=== PATIENT | male | born 1940 | race Asian ===

== ENCOUNTER 2019-06-17 05:14 | Emergency (ER) | payer MEDICARE ==
[~2019-06-17] VITALS: Ht 170.2 cm; Wt 93.2 kg
[2019-06-17] MEDS ORDERED: ALLO100T PO (05:32)
[2019-06-17] MEDS ORDERED: ALBU8HFA IH (05:32)
[2019-06-17] MEDS ORDERED: INSU100V SQ (05:32)
[2019-06-17] MEDS ORDERED: LOSA25TA41 PO (05:32)
[2019-06-17] MEDS ORDERED: SIMV-259 PO (05:32)
[2019-06-17] MEDS ORDERED: ASPI81 PO (05:32)
[2019-06-17] MEDS ORDERED: FINA5TAB41 PO (05:32)
[2019-06-17] MEDS ORDERED: FURO20 PO (05:32)
[2019-06-17] MEDS ORDERED: HYDR10TA31 PO (05:32)
[2019-06-17 05:33] LABS: GLUCOSE,POINT OF CARE 184 MG/DL (70-110)
[2019-06-17] MEDS ORDERED: POTA99TA15 PO (05:37)
[2019-06-17 05:39] LABS: BASOPHILS % (AUTO) 0.5 % (0.0-2.0); EOSINOPHILS % (AUTO) 3.4 % (1.0-6.0); HEMATOCRIT 39.3 % (41-53); LYMPHOCYTES # (AUTO) 2.3 K/uL (1.0-4.8); LYMPHOCYTES % (AUTO) 28.5 % (22.0-44.0); MEAN CORPUSCULAR HGB CONC 33.2 G/dL (31.0-37.0); MEAN CORPUSCULAR VOLUME 91 fL (80-100); MONOCYTES # (AUTO) 0.8 K/uL (0.1-1.0); MONOCYTES % (AUTO) 10.1 % (2.0-9.0); NEUTROPHILS # (AUTO) 4.6 K/uL (1.8-7.7); NEUTROPHILS % (AUTO) 57.5 % (40.0-70.0); PLATELET COUNT (AUTO) 153 K/uL (150-450); RED BLOOD CELL COUNT(AUTO) 4.34 MIL/uL (4.50-5.90); RED CELL DISTRIBUTION WIDTH 14.8 % (11.5-14.5)
[2019-06-17] MEDS ORDERED: KDUR10 PO (05:47)
[2019-06-17] MEDS ORDERED: FURO40 PO (05:47)
[2019-06-17] MEDS ORDERED: SIMV-260 PO (05:47)
[2019-06-17] MEDS ORDERED: HYDR25TA84 PO (05:47)
[2019-06-17] MEDS ORDERED: MONT10TA21 PO (05:47)
[2019-06-17] MEDS ORDERED: TAMS-13 PO (05:47)
[2019-06-17 06:14] LABS: CALCIUM, TOTAL 8.6 mg/dL (8.8-10.5); CREATININE 1.95 mg/dL (0.60-1.30); POTASSIUM 4.4 mmol/L (3.5-5.1)
[2019-06-17 06:18] LABS: PROTHROMBIN TIME 9.9 SEC (9.4-11.6)
[2019-06-17 06:20] LABS: ALBUMIN 3.8 g/dL (3.4-5.0); BILIRUBIN,TOTAL 0.6 mg/dL (0.1-1.0); MAGNESIUM 2.1 mg/dL (1.80-2.40); TOTAL PROTEIN, SERUM 7.6 g/dL (6.4-8.2)
[2019-06-17 07:48] LABS: APPEARANCE,URINE CLEAR (CLEAR); BILIRUBIN,URINE NEGATIVE (NEGATIVE); GLUCOSE, URINE (UA) NEGATIVE (NEGATIVE); KETONES,URINE NEGATIVE (NEGATIVE); LEUKOCYTE ESTERASE ,URINE NEGATIVE (NEGATIVE); NITRATE,URINE NEGATIVE (NEGATIVE); OCCULT BLOOD,URINE NEGATIVE (NEGATIVE); PH,URINE 6.5 (5.0-8.0); PROTEIN,URINE SEE CONFIRM (NEGATIVE); UROBILINOGEN,URINE 0.2 mg/dL (<=1.0)
[2019-06-17 07:57] LABS: SULFOSALICYLIC ACID,URINE Trace (Negative)
[2019-06-17 07:59] LABS: BACTERIA,URINE None Seen /HPF (None Seen); RBC,URINE None Seen /HPF (0-2); SQUAMOUS EPITHELIAL CELL,UR Few /LPF (None Seen); WBC,URINE None Seen /HPF (0-5)
[2019-06-17] MEDS ORDERED: GLYCERIN 2 GM RECTAL SUPPOSITORY [ADULT] PR ONE (08:00)
[2019-06-17] MEDS ORDERED: MAGNESIUM CITRATE 300 ML ORAL SOLUTION PO ONE (09:15)
[2019-06-17 09:33] VITALS: BP 131/68
== END 2019-06-17 09:36 | disposition home or self-care (01) ==
LOC: EMS 05:16
DX: I12.9 Hypertensive chronic kidney disease with stage 1 through stage 4 chronic kidney disease, or unspecified chronic kidney disease (principal); E11.22 Type 2 diabetes mellitus with diabetic chronic kidney disease; N18.9 Chronic kidney disease, unspecified; F17.210 Nicotine dependence, cigarettes, uncomplicated; Z79.82 Long term (current) use of aspirin; Z79.4 Long term (current) use of insulin; Z79.899 Other long term (current) drug therapy
CPT/HCPCS: 74176; 83735; 93005